=== PATIENT | male | born 1940 | race Caucasian/White ===

== ENCOUNTER 2017-01-22 07:55 | Emergency (ER) | payer MEDICARE ==
[~2017-01-22] VITALS: Ht 162.6 cm; Wt 72.9 kg
[2017-01-22 07:59] VITALS: Ht 162.6 cm; Wt 72.9 kg
--- NOTE | 2017-01-22 08:31 | ERD ---
ER Documentation Chief Complaint Chief Complaint pt bib self with c/o painful urination with some bleeding x 3 days HPI 76-year-old male, history of prostate disease comes to emergency room 3 days history of painful urination with intermittent gross hematuria for 1 day. Patient states that he was seen on a urologist office earlier this week. Patient denies any history of known prostate cancer, he was evaluated for prostatomegaly, and had imaging done in the office. He describes burning upon urination. But denies any fevers chills, nausea vomiting. He denies scrotal pain, rectal pain, abdominal pain, flank pain. Patient denies chest pain or shortness of breath. ROS All systems reviewed and are negative except as per history of present illness. Medications Home Meds Active Scripts Acetaminophen* (Tylophen*) 500 Mg Capsule, 1 CAP PO Q6H Y for PAIN AND OR ELEVATED TEMP, #20 CAP Prov:CONOR STOKES PA-C 01/22/17 Cephalexin* (Keflex*) 500 Mg Capsule, 500 MG PO TID for 14 Days, CAP Prov:CONOR STOKES PA-C 01/22/17 Allergies Allergies: Coded Allergies: No Known Allergy (Unverified , 01/22/17) PMhx/Soc Medical and Surgical Hx: pt denies Surgical Hx History of Surgery: No Anesthesia Reaction: No Hx Neurological Disorder: No Hx Respiratory Disorders: No Hx Cardiac Disorders: Yes (HTN) Hx Psychiatric Problems: No Hx Miscellaneous Medical Probl: No Hx Alcohol Use: No Hx Substance Use: No Hx Tobacco Use: No Smoking Status: Never smoker Physical Exam Vitals Vital Signs Date Time Temp Pulse Resp B/P Pulse Ox O2 Delivery O2 Flow Rate FiO2 01/22/17 09:33 98.6 75 17 98 Room Air 01/22/17 07:59 98.8 68 18 169/79 97 Physical Exam General: Well-developed, well-nourished. The patient appears in no acute distress. HEENT: Head is normocephalic, atraumatic. No scleral icterus. Neck: Supple. Nontender. Lungs: Clear to auscultation. Normal air movement. Heart: Regular rate and rhythm. S1 and S2 are normal. No murmurs, gallops, or rubs. Abdomen: Soft, nontender, nondistended. Bowel sounds are normoactive. Extremities: No clubbing or cyanosis. Normal pulses. Moving extremities x 4. No weakness. Neurologic: Alert and oriented 3. No focal deficits. Skin: Normal turgor. No rash or lesions. Results 24 hrs Laboratory Tests Test 01/22/17 06:24 Urine Color YELLOW Urine Clarity SLIGHTLY CLOUDY Urine pH 6.0 Urine Specific [place] 1.012 Urine Ketones NEGATIVEmg/dL Urine Nitrite NEGATIVEmg/dL Urine Bilirubin NEGATIVEmg/dL Urine Urobilinogen NEGATIVEmg/dL Urine Leukocyte Esterase 2+Alexia/ul Urine Microscopic RBC > 182/HPF Urine Microscopic WBC 129/HPF Urine Bacteria MODERATE/HPF Urine Hemoglobin 3+mg/dL Urine Glucose NEGATIVEmg/dL Urine Total Protein 1+mg/dl Procedures/MDM 76-year-old male with a history of prostatomegaly presents with a UTI. Patient complains of burning as well as blood in her urine, without any abdominal pain, fevers, chills, signs of sepsis, pyelonephritis. He is very comfortable and does not complain of any rectal pain, suspicion for prostatitis is low. This case was discussed with my attending physician who is also evaluated the patient agrees with the plan. Patient's blood pressure was elevated (>120/80) but appears stable without evidence of hypertension emergency or urgency. The patient was counseled about the risks of hypertension and urged to pursue outpatient monitoring and therapy within a week with their primary care physician. The case was reviewed and discussed with Dr. Hercules who agrees with the plan of care including as appropriate. Departure Diagnosis: Primary Impression: UTI (urinary tract infection) Condition: CONOR Christiansen PA-C Jan 22, 2017 08:31
[2017-01-22 09:09] LABS: ADD UMIC YES; UR ASCORBIC ACID NEGATIVE (NEGATIVE); UR BACTERIA MODERATE /HPF (NONE SEEN); UR BILIRUBIN (Dip) NEGATIVE (NEGATIVE); UR BLOOD (Dip) 3+ mg/dL (NEGATIVE); UR CLARITY SLIGHTLY CLOUDY (CLEAR); UR COLOR YELLOW (YELLOW); UR GLUCOSE (Dip) NEGATIVE (NEGATIVE); UR KETONES (Dip) NEGATIVE (NEGATIVE); UR LEUKOCYTE ESTERASE (Dip) 2+ Leu/ul (NEGATIVE); UR NITRITE (Dip) NEGATIVE (NEGATIVE); UR RBC > 182 /HPF (0-5); UR SPECIFIC GRAVITY (Dip) 1.012 (1.003-1.030); UR TOTAL PROTEIN (Dip) 1+ mg/dl (NEGATIVE); UR UROBILINOGEN (Dip) NEGATIVE (NEGATIVE)
[2017-01-22] MEDS ORDERED: CEPH-443 PO (09:13)
[2017-01-22] MEDS ORDERED: ACET500C5 PO (09:13)
[2017-01-22 09:33] VITALS: PULSE 75; RESP 17; TEMP 98.6
--- NOTE | 2017-01-22 09:38 | QN ---
Documentation Comment Event note Subjective: This patient was evaluated by me in conjunction with the PA. Briefly, this is a 76-year-old male with a past medical history of BPH, previous evaluations by urology, who is presenting for evaluation of hematuria. The patient otherwise feels quite well, but he wanted to have his urine checked as he noted a few spots of blood. Objective: Vital signs reviewed Const: No apparent distress, well-developed, well-nourished Head: Normocephalic, Atraumatic Eyes: Normal Conjunctiva. ENT: Normal External Ears, Nose and Mouth. Moist mucous membranes. Neck: No meningismus. Resp: Symmetric chest wall dubose, no audible wheezes, lungs are clear to auscultation bilaterally Cardio: Normal sinus rhythm, no murmurs, no rubs, no gallops Abd: Non distended, bowel sounds Skin: No petechiae or rashes Back: Deferred Ext: No cyanosis, or edema Neur: Awake and alert, oriented 4. No facial droop. Normal strength and sensation. Psych: Normal mood and affect Assessment: UTI Plan: It is a very pleasant male with findings consistent with a UTI. The patient's urinalysis shows positive leukocyte esterase as well as WBCs. I do feel at this time that the patient requires antibiotic treatment for this. The patient should follow-up with his urologist. He will call to schedule a follow- up appointment. Please see the PA documentation for further detail. KATHY KING MD Jan 22, 2017 09:38
== END 2017-01-22 09:33 | disposition home or self-care (01) ==
LOC: FTE 07:55
DX: N39.0 Urinary tract infection, site not specified (principal); I10 Essential (primary) hypertension
CPT/HCPCS: 81001; 87086; 99283